=== PATIENT | female | born 1985 | race African-American/Black ===

== ENCOUNTER → 2017-02-24 | Outpatient (CLI) | payer OTHER ==
[~2017-02-24] MED LIST: ALBUAER19 INH; CLON0.5T3 PO
== END | disposition home or self-care (01) ==
LOC: C.PAPS 14:56
PROVIDERS: ATTEND Obstetrics & Gynecology
DX: Z12.4 Encounter for screening for malignant neoplasm of cervix (principal)

== ENCOUNTER 2017-07-26 22:05 | Emergency (ER) | payer OTHER ==
[~2017-07-26] VITALS: Ht 137.2 cm; Wt 57.1 kg
[~2017-07-26 22:05] MED LIST changes: -CLON0.5T3 PO; +KLN/5 PO
[2017-07-26 22:10] VITALS: Ht 137.2 cm; Wt 57.1 kg
[2017-07-26] MEDS ORDERED: OLANZAPINE ZYDIS 10 MG ORALLY DIS. TAB PO STA (22:32)
[2017-07-26 23:00] LABS: BASO % 0.3 %; BASO ABS # 0.02 K/uL (0-0.2); EOS % 0.6 %; EOS ABS # 0.05 K/uL (0-0.5); HEMATOCRIT 44.1 % (37-47); HEMOGLOBIN 15.8 g/dL (12.0-16.0); IG# 0.02 K/uL (0.00-0.02); LYMPH % 42.4 %; LYMPH ABS # 3.35 K/uL (1.2-3.4); MEAN CELL VOLUME 98.4 fL (80-100); MEAN CORPUSCULAR HEMOGLOBIN 35.3 pg (25-34); MEAN CORPUSCULAR HGB CONC 35.8 g/dl (32-36); MEAN PLATELET VOLUME 9.3 fL (7.4-10.4); MONO % 9.5 %; MONO ABS # 0.75 K/uL (0.11-0.59); NEUT % 46.9 %; NEUT ABS # 3.72 K/uL (1.4-6.5); PLATELET COUNT 338 K/uL (130-400); RED CELL DISTRIBUTION WIDTH CV 12.6 % (11.5-14.5); RED CELL DISTRIBUTION WIDTH SD 45.4 fL (36.4-46.3); WHITE BLOOD COUNT 7.91 K/uL (4.8-10.8)
[2017-07-26] MEDS ORDERED: LORAZEPAM 2 MG/ML 1 ML VIAL IM STA (23:04)
[2017-07-26] MEDS ORDERED: HALOPERIDOL LACTATE 5 MG/ML 1 ML VIAL IM STA (23:04)
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
[2017-07-26 23:20] LABS: ALBUMIN 4.1 gm/dl (3.4-5.0); ALT/SGPT 27 U/L (12-78); AST/SGOT 24 U/L (15-37); BLOOD UREA NITROGEN 12 mg/dl (7-18); CARBON DIOXIDE 26 mmol/L (21-32); CREATININE 0.79 mg/dl (0.60-1.20); GLUCOSE 102 mg/dl (70-99); POTASSIUM 3.6 mmol/L (3.5-5.1); SODIUM 144 mmol/L (136-145)
[2017-07-26 23:30] LABS: ALKALINE PHOSPHATASE 74 U/L (45-117); TOTAL PROTEIN 8.6 gm/dl (6.4-8.2)
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
[2017-07-27 12:26] VITALS: BP 142/82; PULSE 92; O2SAT 98
[2017-12-16] MEDS ORDERED: CHLO25CA10 PO (01:48)
[2017-12-16] MEDS ORDERED: CEPH500C PO (03:08)
[2017-12-22] MEDS ORDERED: CEPH500C2 PO (23:52)
== END 2017-07-27 12:28 | disposition home or self-care (01) ==
LOC: EDBD 22:05 → C.EDA 22:07
DX: R45.851 Suicidal ideations (principal); F10.929 Alcohol use, unspecified with intoxication, unspecified; F91.9 Conduct disorder, unspecified; R45.1 Restlessness and agitation; J45.909 Unspecified asthma, uncomplicated

== ENCOUNTER 2017-12-06 16:16 | Emergency (ER) | payer OTHER ==
[~2017-12-06] VITALS: Ht 172.7 cm; Wt 61.2 kg
[2017-12-06 16:18] VITALS: TEMP 37.1; Ht 172.7 cm; Wt 61.2 kg
[2017-12-06] MEDS ORDERED: ALBUT/IPRATROP 3MG/0.5MG NEB 3 ML VIAL INH STA (16:47)
[2017-12-06 17:10] LABS: BASO % 0.5 %; BASO ABS # 0.04 K/uL (0-0.2); EOS % 0.7 %; EOS ABS # 0.06 K/uL (0-0.5); HEMATOCRIT 42.7 % (37-47); HEMOGLOBIN 15.2 g/dL (12.0-16.0); IG# 0.01 K/uL (0.00-0.02); LYMPH % 30.3 %; LYMPH ABS # 2.66 K/uL (1.2-3.4); MEAN CELL VOLUME 99.5 fL (80-100); MEAN CORPUSCULAR HEMOGLOBIN 35.4 pg (25-34); MEAN CORPUSCULAR HGB CONC 35.6 g/dl (32-36); MEAN PLATELET VOLUME 9.2 fL (7.4-10.4); MONO % 6.3 %; MONO ABS # 0.55 K/uL (0.11-0.59); NEUT % 62.1 %; NEUT ABS # 5.45 K/uL (1.4-6.5); PLATELET COUNT 330 K/uL (130-400); RED CELL DISTRIBUTION WIDTH CV 12.5 % (11.5-14.5); RED CELL DISTRIBUTION WIDTH SD 45.7 fL (36.4-46.3); WHITE BLOOD COUNT 8.77 K/uL (4.8-10.8)
[2017-12-06 17:28] LABS: ALBUMIN 3.8 gm/dl (3.4-5.0); ALT/SGPT 29 U/L (12-78); AST/SGOT 37 U/L (15-37); BLOOD UREA NITROGEN 10 mg/dl (7-18); CALCIUM 8.6 mg/dl (8.5-10.1); CARBON DIOXIDE 29 mmol/L (21-32); GLUCOSE 101 mg/dl (70-99); LIPASE 371 U/L (73-393); POTASSIUM 3.5 mmol/L (3.5-5.1); SODIUM 140 mmol/L (136-145)
[2017-12-06] MEDS ORDERED: CEFTRIAXONE SOD INJ 1 GM ADDVIAL IV STA (17:29)
[2017-12-06] MEDS ORDERED: PANTOprazole INJ 40 MG in SYRINGE 0 ML IV ONE (17:30)
[2017-12-06 17:39] LABS: ALKALINE PHOSPHATASE 94 U/L (45-117); TOTAL PROTEIN 8.2 gm/dl (6.4-8.2)
--- NOTE | 2017-12-06 18:36 | DIAGNOSTIC IMAGING REPORT ---
CHEST 2 VIEWS ROUTINE HISTORY: 32 years-old Female cough, hemoptysis acute cough COMPARISON: Chest radiograph 11/26/2013 TECHNIQUE: PA and lateral views of the chest FINDINGS: Cardiomediastinal and hilar silhouettes are within normal limits. No pneumothorax, pleural effusion, focal airspace consolidation or overt pulmonary edema. Bones of the chest appear grossly intact. IMPRESSION: No acute process. The above report was generated using voice recognition software. It may contain grammatical, syntax or spelling errors. Electronically signed by: Butch Wilson M.D. 12/06/2017 6:35 PM Dictated Date/Time: 12/06/2017 6:33 PM
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
[2017-12-06] MEDS ORDERED: CEPH-571 PO (21:30)
[2017-12-06] MEDS ORDERED: CHLO25CA10 PO (21:30)
[2017-12-06 22:45] VITALS: BP 137/100; PULSE 91; O2SAT 97
[2017-12-06] MEDS ORDERED: ALBUTEROL HFA 8 GM INHALER INH ONE (22:45)
== END 2017-12-06 22:47 | disposition home or self-care (01) ==
LOC: EDUNIT# 16:16 → C.EDB 16:21 → C.EDA 22:47
DX: F10.229 Alcohol dependence with intoxication, unspecified (principal); R04.2 Hemoptysis; N39.0 Urinary tract infection, site not specified; Y90.8 Blood alcohol level of 240 mg/100 ml or more; F41.9 Anxiety disorder, unspecified; F43.10 Post-traumatic stress disorder, unspecified; F17.210 Nicotine dependence, cigarettes, uncomplicated; J45.909 Unspecified asthma, uncomplicated; Z79.899 Other long term (current) drug therapy; Z88.0 Allergy status to penicillin